=== PATIENT | male | born 1955 | race African-American/Black ===

== ENCOUNTER 2017-05-20 19:27 | Emergency (ER) | payer OTHER ==
[~2017-05-20 19:27] MED LIST: ISOVUE-370 76%-LOCM 1 ML ONE
[2017-05-20] MEDS ORDERED: Adacel (T-DAP) 0.5 ML VIAL ONE (19:37)
[2017-05-20] MEDS ORDERED: Ondansetron HCl/PF 4 MG/2 ML Vial ONE (19:59)
[2017-05-20 20:04] LABS: PTT 24.8 SEC (22.9-36.1); Prothrombin Time 12.7 SEC (12.0-14.7)
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
[2017-05-20] MEDS ORDERED: Lidocaine 1% w/Epinephrine 1:200K 30 ML VIAL ONE (21:04)
[2017-05-20 21:34] LABS: #Basophils 0.1 thou/uL (0.0-0.2); #Eosinphils 0.1 thou/uL (0.0-0.7); #Lymphocytes 1.8 thou/uL (1.20-3.40); #Monocytes 0.5 thou/uL (0.11-0.59); #Neutrophils 3.9 thou/uL (1.40-6.50); %Basophils 0.9 % (0.0-1.0); %Eosinophils 1.3 % (0.0-10.0); %Monocytes 7.8 % (0.0-10.0); Hematocrit 50.6 % (42.0-52.0); Mean Platelet Volume 9.2 fL (7.4-10.4); Red Blood Cell (RBC) Count 5.72 mill/uL (4.70-6.10); White Blood Cell (WBC) Count 6.4 thou/uL (4.8-10.8)
[2017-05-20 21:44] LABS: ALT (SGPT) 42 U/L (8-55); AST (SGOT) 29 U/L (5-34); Alkaline Phosphatase 62 U/L (40-150); Anion Gap 14 mmol/L (10-20); BUN (Urea Nitrogen) 4 mg/dL (8.4-25.7); Bilirubin, Total 0.4 mg/dL (0.2-1.2); Calc. Creatinine Clearance 0 mL/min (70-130); Calcium 9.6 mg/dL (7.8-10.44); Carbon Dioxide 28 mmol/L (23-31); Chloride 104 mmol/L (98-107); Estimated GFR-MDRD Greater than 90; Globulin 3.6 g/dL (2.4-3.5); Protein, Total 7.7 g/dL (5.8-8.1)
[2017-05-20 21:45] LABS: Acetaminophen Less than 6.0 mcg/mL (10.0-30.0); CK (CPK) 238 U/L (30-200); Salicylate Less than 8.0 mg/dL (15.0-30.0)
[2017-05-20 21:58] LABS: Bilirubin Negative (Negative); Blood, Urine Negative (Negative); Glucose, Urine (Dipstick) Negative (Negative); Ketone, Urine Negative (Negative); Nitrite Negative (Negative); Protein, Urine (Dipstick) Negative (Neg-Trace); Urobilinogen 0.2 mg/dL (0.2-1.0)
[2017-05-20 22:07] LABS: Amphetamine Not Detected (NotDetected); Methadone Not Detected (NotDetected); Methamphetamine Not Detected (NotDetected)
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
== END 2017-05-20 23:04 | disposition home or self-care (01) ==
LOC: ERS 19:27
DX: S01.511A Laceration without foreign body of lip, initial encounter (principal); F19.10 Other psychoactive substance abuse, uncomplicated; Z87.891 Personal history of nicotine dependence; V47.5XXA Car driver injured in collision with fixed or stationary object in traffic accident, initial encounter
CPT/HCPCS: 12011; 70450; 70486; 71010; 71260; 72125; 72170; 74177; 80053; 80306; 80307; 81003; 82550; 85025; 85610; 85730; 90471; 90715; 93005; 96361; 96374; 96375; G0390; J2405